=== PATIENT | male | born 1980 | race Hispanic/Latino ===

== ENCOUNTER 2017-09-15 09:40 | Emergency (ER) | payer SELFPAY ==
[2017-09-15 09:51] VITALS: BP 110/74
[2017-09-15 10:46] LABS: Basophils % (Auto) 1.2 % (0.0-1.8); Eosinophils % (Auto) 2.4 % (0.0-4.3); Hematocrit 46.3 % (35.5-45.6); Hemoglobin 15.9 gm/dl (11.8-15.2); Mean Corpuscular HGB Conc 34 % (32-34); Mean Corpuscular Hemoglobin 32 pg (28-32); Mean Corpuscular Volume 93 fl (84-94); Platelet Count 255 K/mm3 (140-440); Red Cell Distribution Width 13.3 % (13.2-15.2); White Blood Count 5.3 K/mm3 (4.5-11.0)
[2017-09-15 11:01] LABS: Anion Gap 15 mmol/L; BUN/Creatinine Ratio 11; Blood Urea Nitrogen 9 mg/dL (9-20); Calcium 8.9 mg/dL (8.4-10.2); Carbon Dioxide 25 mmol/L (22-30); Chloride 98.8 mmol/L (98-107); Glucose 100 mg/dL (75-100); Potassium 4.3 mmol/L (3.6-5.0); Sodium 134 mmol/L (137-145)
[2017-09-15 11:41] LABS: Bilirubin,Urine NEG (Negative); Blood,Urine NEG (Negative); Ketones,Urine NEG (Negative); Leukocyte Esterase,Urine NEG (Negative); Mucus,Urine 1+ /HPF; Nitrite,Urine NEG (Negative); Protein,Urine <15 mg/dL mg/dL (Negative); RBC,Urine < 1.0 /HPF (0.0-6.0); WBC,Urine < 1.0 /HPF (0.0-6.0)
[2017-09-15] MEDS ORDERED: ZOFRAN IV ONE (12:15)
[2017-09-15] MEDS ORDERED: TORADOL IV ONE (12:15)
--- NOTE | 2017-09-15 12:22 | Emergency Department Report ---
ED Abdominal Pain HPI - General Chief Complaint: Urogenital-Male Stated Complaint: ABD PAIN, UNABLE TO URINATE Time Seen by Provider: 09/15/17 12:09 Source: patient Mode of arrival: Ambulatory Limitations: No Limitations - History of Present Illness Initial Comments: Pt reports lower abdominal pain and difficulty urinating x 1 day. Denies vomiting but has had some on and off nausea. Bowel movements normal. Checked for STI recently and negative. -: Gradual, days(s) (1) Location: RLQ, R flank Radiation: none Migration to: no migration Severity: moderate Quality: aching Consistency: constant Improves With: nothing Worsens With: nothing Associated Symptoms: nausea, dysuria - Related Data Previous Rx's Medication Instructions Recorded Last Taken Type Acetaminophen/Codeine [Tylenol #3] 1 tab PO Q6H PRN #15 tab 07/31/16 Unknown Rx Ciprofloxacin HCl [Ciprofloxacin 500 mg PO Q12H #60 tab 09/15/17 Unknown Rx TAB] Ketorolac [Toradol] 10 mg PO Q6H PRN #20 tablet 09/15/17 Unknown Rx Tamsulosin [Flomax] 0.4 mg PO QDAY #30 cap 09/15/17 Unknown Rx Allergies Allergy/AdvReac Type Severity Reaction Status Date / Time Penicillins Allergy Anaphylaxis Verified 07/31/16 03:13 ED Review of Systems ROS: Stated complaint: ABD PAIN, UNABLE TO URINATE Other details as noted in HPI Comment: All other systems reviewed and negative Constitutional: denies: chills, fever Eyes: denies: eye pain, eye discharge, vision change ENT: denies: ear pain, throat pain Respiratory: denies: cough, shortness of breath, wheezing Cardiovascular: denies: chest pain, palpitations Endocrine: no symptoms reported Gastrointestinal: abdominal pain. denies: nausea, diarrhea Genitourinary: dysuria. denies: urgency Musculoskeletal: denies: back pain, joint swelling, arthralgia Skin: denies: rash, lesions Neurological: denies: headache, weakness, paresthesias Psychiatric: denies: anxiety, depression Hematological/Lymphatic: denies: easy bleeding, easy bruising ED Past Medical Hx - Past Medical History Previous Medical History?: No - Surgical History Past Surgical History?: No - Social History Smoking Status: Never Smoker Substance Use Type: None - Medications Home Medications: Home Medications Medication Instructions Recorded Confirmed Last Taken Type Acetaminophen/Codeine [Tylenol #3] 1 tab PO Q6H PRN #15 tab 07/31/16 Unknown Rx Ciprofloxacin HCl [Ciprofloxacin 500 mg PO Q12H #60 tab 09/15/17 Unknown Rx TAB] Ketorolac [Toradol] 10 mg PO Q6H PRN #20 tablet 09/15/17 Unknown Rx Tamsulosin [Flomax] 0.4 mg PO QDAY #30 cap 09/15/17 Unknown Rx ED Physical Exam - General Limitations: No Limitations General appearance: alert, in no apparent distress - Head Head exam: Present: atraumatic, normocephalic - Eye Eye exam: Present: normal appearance - ENT ENT exam: Present: mucous membranes moist - Neck Neck exam: Present: normal inspection - Respiratory Respiratory exam: Present: normal lung sounds bilaterally. Absent: respiratory distress - Cardiovascular Cardiovascular Exam: Present: regular rate, normal rhythm. Absent: systolic murmur, diastolic murmur, rubs, gallop - GI/Abdominal GI/Abdominal exam: Present: soft, tenderness (RLQ, LLQ, suprapubic), normal bowel sounds. Absent: distended, guarding, rebound, rigid - Rectal Rectal exam: Present: deferred, prostate tenderness, prostate enlargement - Extremities Exam Extremities exam: Present: normal inspection - Back Exam Back exam: Present: normal inspection, CVA tenderness (R) - Neurological Exam Neurological exam: Present: alert, oriented X3 - Psychiatric Psychiatric exam: Present: normal affect, normal mood - Skin Skin exam: Present: warm, dry, intact, normal color. Absent: rash ED Course Vital Signs 09/15/17 09:46 Temperature 97.7 F Pulse Rate 65 Respiratory 18 Rate Blood Pressure 110/74 O2 Sat by Pulse 96 Oximetry - Reevaluation(s) Reevaluation #1: 09/15/17 13:15 Pt is in NAD and stable for d/c. ED Medical Decision Making - Lab Data Result diagrams: 09/15/17 10:26 09/15/17 10:26 - Radiology Data Radiology results: report reviewed normal - Medical Decision Making CT, labs, UA negative. Prostate checked and found to be mildly enlarged and tender which is likely origin for pt symptoms. Will refer to urology and start abx + Flomax. - Differential Diagnosis UTI, Stone, Appy, Prostatitis Critical care attestation.: If time is entered above; I have spent that time in minutes in the direct care of this critically ill patient, excluding procedure time. ED Disposition Clinical Impression: Acute prostatitis, Abdominal pain in male Disposition: DC- TO HOME OR SELFCARE Is pt being admited?: No Condition: Good Instructions: Prostatitis (ED) Prescriptions: Ciprofloxacin HCl [Ciprofloxacin TAB] 500 mg PO Q12H #60 tab Ketorolac [Toradol] 10 mg PO Q6H PRN #20 tablet PRN Reason: Pain Tamsulosin [Flomax] 0.4 mg PO QDAY #30 cap Referrals: PRIMARY CAREMD [Primary Care Provider] - 3-5 Days JOAN MIDDLETON MD [Referring] - 3-5 Days Time of Disposition: 13:16
[2017-09-15] MEDS ORDERED: NACL ONE ×2 (12:26→12:28)
--- NOTE | 2017-09-15 12:58 | Cat Scan Report ---
CT SCAN OF THE ABDOMEN AND PELVIS WITH CONTRAST: HISTORY: Right lower quadrant abdominal pain. TECHNIQUE: Helical CT in 1.25mm intervals following IV contrast. Sagittal and coronal reconstructions. FINDINGS: The liver is normal in size and is without focal defect. No gallstones or biliary dilatation are noted. The spleen and pancreas demonstrate a normal size and attenuation with no evidence of abnormal mass. The kidneys are normal in size and position with no evidence of hydronephrosis or mass. The adrenal glands are normal. There is no intestinal obstruction or ascites. Normal appendix. The abdominal aorta is normal. No abnormalities are identified within the retroperitoneum or mesentery. There is no evidence of peritoneal air or fluid. There is no evidence of any abnormal masses or fluid collections within the pelvis. No adenopathy is identified. The bladder is normal. IMPRESSION: Unremarkable CT scan of the abdomen and pelvis with contrast.
== END 2017-09-15 13:56 | disposition home or self-care (01) ==
LOC: ED 09:40
DX: N41.0 Acute prostatitis (principal); Z88.0 Allergy status to penicillin
CPT/HCPCS: 36415; 74177; 80048; 81001; 85025; 96374; 96375; 99284; J1885; J2405; Q9967